=== PATIENT | male | born 1940 | race Caucasian/White ===

== ENCOUNTER 2018-01-03 11:14 | Emergency (ER) | payer OTHER ==
[2018-01-03] MEDS ORDERED: LIDOCAINE 1% MPF 5 ML VIAL ONE (13:50)
[2018-01-03] MEDS ORDERED: HYDROCODONE/APAP 7.5/325 MG TAB ONE (13:51)
[2018-01-03] MEDS ORDERED: TETANUS & DIPHTHERIA TOX,ADULT 0.5 ML VIAL ONE (13:51)
[2018-01-03] MEDS ORDERED: BUPIVACAINE 0.25% PF 10 ML VIAL ONE (13:55)
--- NOTE | 2018-01-03 14:25 | RAD REPORT ---
EXAM DESCRIPTION: RAD -Hand Left 3 View - 01/03/2018 2:11 pm CLINICAL HISTORY: Left hand pain status post injury FINDINGS: A bandage overlies the common mildly obscuring detail. No acute fracture or dislocation is seen. Old fractures involve the distal radius and ulna
--- NOTE | 2018-01-03 16:44 | ER ---
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 Transition of care: patient was not received from another setting of care. Onset of symptoms was January 03, 2018. Risk Assessment: Do you want to hurt yourself or someone else? Patient reports no desire to harm self or others. Initial Sepsis Screen: Does the patient meet any 2 criteria? No. Patient's initial sepsis screen is negative. Does the patient have a suspected source of infection? No. Patient's initial sepsis screen is negative. Care prior to arrival: None. 11:33 Method Of Arrival: Ambulatory 11:33 Acuity: YEISON 3 aj Triage Assessment: 11:35 General: Appears in no apparent distress. comfortable, Behavior is calm, cooperative, aj appropriate for age. Pain: Complains of pain in palmar aspect of distal phalanx of left thumb. Neuro: Level of Consciousness is awake, alert, obeys commands, Oriented to person, place, time, situation, Appropriate for age. Respiratory: Airway is patent Respiratory effort is even, unlabored, Respiratory pattern is regular, symmetrical. Derm: Skin is intact, is healthy with good turgor, Skin is pink, warm \T\ dry. normal. Injury Description: Laceration sustained to palmar aspect of distal phalanx of left thumb is jagged, 0.5 to 2.5 cm long, not bleeding, was sustained 30-60 minutes ago. a small amount of bleeding noted at this time. Historical: - Allergies: 11:35 No Known Allergies; aj - Home Meds: 11:35 Metformin Oral [Active]; Lisinopril Oral [Active]; gabapentin oral oral [Active]; aj - PMHx: 11:35 Diabetes - NIDDM; Hypertension; aj - PSHx: 11:35 Knee surgery; Bowel resection; aj - Immunization history:: Last tetanus immunization: unknown. - Social history:: Smoking status: Patient/guardian denies using tobacco. - Ebola Screening: : Patient negative for fever greater than or equal to 101.5 degrees Fahrenheit, and additional compatible Ebola Virus Disease symptoms Patient denies exposure to infectious person Patient denies travel to an Ebola-affected area in the 21 days before illness onset No symptoms or risks identified at this time. Screenin:20 Abuse screen: Denies threats or abuse. Nutritional screening: No deficits noted. tl3 Tuberculosis screening: No symptoms or risk factors identified. Fall Risk None identified. Assessment: 13:20 General: Appears slender, well groomed, well developed, well nourished, Behavior is tl3 calm, cooperative, appropriate for age. Pain: Complains of pain in left hand and palmar aspect of distal phalanx of left thumb Pain began 3 hours ago. Neuro: Level of Consciousness is awake, alert, obeys commands, Oriented to person, place, time, situation, Appropriate for age. Cardiovascular: Patient's skin is warm and dry. Respiratory: Airway is patent Respiratory effort is even, unlabored. GI: No signs and/or symptoms were reported involving the gastrointestinal system. : No signs and/or symptoms were reported regarding the genitourinary system. EENT: No signs and/or symptoms were reported regarding the EENT system. Derm: Wound noted left hand and palmar aspect of distal phalanx of left thumb. Derm: Reports ;laceration to left thumb pt cut with table saw. Musculoskeletal: Capillary refill < 3 seconds. 15:35 Reassessment: Patient appears in no apparent distress at this time. No changes from tl3 previously documented assessment. Patient and/or family updated on plan of care and expected duration. Pain level reassessed. Patient is alert, oriented x 3, equal unlabored respirations, skin warm/dry/pink. discussed lab results with pt, no further needs at this time. Vital Signs: 11:35 BP 154 / 76; Pulse 75; Resp 17; Temp 98.6; Pulse Ox 93% on R/A; Weight 79.38 kg; Height aj 5 ft. 5 in. (165.10 cm) (R); 15:35 BP 126 / 87; Pulse 74; Resp 18; Pulse Ox 96% ; tl3 11:35 Body Mass Index 29.12 (79.38 kg, 165.10 cm) aj ED Course: 11:21 Patient arrived in ED. mr 11:21 Benjamin Cervantes MD is Private Physician. mr 11:34 Triage completed. aj 11:35 Arm band placed on right wrist. Patient placed in waiting room, Patient notified of aj wait time. 13:07 Yessi Orr FNP-C is PHCP. kb 13:07 Eliazar Kohler MD is Attending Physician. kb 13:18 Kathleen Rivera, WILNER is Primary Nurse. tl3 13:20 Patient has correct armband on for positive identification. tl3 13:20 No provider procedures requiring assistance completed. tl3 13:50 X-ray(s) taken. tl3 13:59 Hand Left 3 View XRAY Sent. tl3 14:02 X-ray completed. Portable x-ray completed in exam room. Patient tolerated procedure ag1 well. 14:04 Hand Left 3 View XRAY In Process Unspecified. EDMS 15:30 Wound care: to laceration located on dorsal aspect of distal phalanx of left thumb, jp3 palmar aspect of distal phalanx of left thumb and left thumbnail was cleaned with Hibiclens, soaked in Betadine solution, debrided using Betadine scrub, irrigated with normal saline, Patient tolerated well. patient given gauze to hold on wound with arm raised to help control the bleeding. 17:52 Patient did not have IV access during this emergency room visit. tl3 Administered Medications: 13:59 Drug: Tetanus-Diphtheria Toxoid Adult 0.5 ml {Global Technical Writer: [employer] Exp: tl3 02/08/2020. Lot #: [id number]. } Route: IM; Site: left deltoid; 14:00 Follow up: Response: No adverse reaction tl3 14:00 Drug: Lucas (7.5 mg-325 mg) 1 tabs Route: PO; tl3 15:37 Follow up: Response: No adverse reaction tl3 15:38 Drug: Lidocaine (1 %) 1 vials {Note: per Yessi.} Volume: 5 ml; Route: Infiltration; tl3 15:38 Follow up: Response: Marked relief of symptoms tl3 15:38 Drug: Marcaine (0.5 %) 1 vials {Note: per Yessi.} Volume: 10 ml; Route: Infiltration; tl3 15:38 Follow up: Response: Marked relief of symptoms tl3 17:00 Drug: Ancef 1 grams Route: IM; Site: left gluteus; tl3 17:01 Follow up: Response: Medication administered at discharge. tl3 17:51 Follow up: Response: No adverse reaction tl3 Outcome: 16:43 Discharge ordered by . mirna 17:31 Patient left the ED. tl3 17:52 Discharged to home ambulatory. tl3 17:52 Condition: good 17:52 Discharge instructions given to patient, Instructed on discharge instructions, follow up and referral plans. medication usage, wound care, Demonstrated understanding of instructions, follow-up care, medications, wound care, Prescriptions given X 2. Signatures: Dispatcher [employer] EDYessi Holbrook, LINE O SCRIBE OPERATOR-C LINE O SCRIBE OPERATOR-Marysol Elizabeth, RN Jessi Conklin Ashley ag1 Kathleen Rivera RN RN tl3 Juarez Abbott jp3
--- NOTE | 2018-01-03 16:44 | EDPHYS ---
Physician Documentation [facility] Name: Erick Champion Age: 77 yrs Sex: Male : 1940 Arrival Date: 01/03/2018 Time: 11:21 Bed 25 Private MD: Benjamin Cervantes B ED Physician Eliazar Kohler HPI: 01/03 13:52 This 77 yrs old Male presents to ER via Ambulatory with complaints of Thumb kb Laceration. 13:52 The patient or guardian reports injury, a laceration, irregular, ragged, pain. The kb complaints affect the palmar aspect of distal phalanx of left thumb. Context: The problem was sustained at home, resulted from working with table saw and cut thumb. Onset: The symptoms/episode began/occurred just prior to arrival. Modifying factors: The symptoms are alleviated by nothing, the symptoms are aggravated by touching. Associated signs and symptoms: The patient has no apparent associated signs or symptoms. Severity of symptoms: At their worst the symptoms were moderate, in the emergency department the symptoms are unchanged. The patient has not experienced similar symptoms in the past. The patient has not recently seen a physician. Historical: - Allergies: 11:35 No Known Allergies; aj - Home Meds: 11:35 Metformin Oral [Active]; Lisinopril Oral [Active]; gabapentin oral oral [Active]; aj - PMHx: 11:35 Diabetes - NIDDM; Hypertension; - PSHx: 11:35 Knee surgery; Bowel resection; aj - Immunization history:: Last tetanus immunization: unknown. - Social history:: Smoking status: Patient/guardian denies using tobacco. - Ebola Screening: : Patient negative for fever greater than or equal to 101.5 degrees Fahrenheit, and additional compatible Ebola Virus Disease symptoms Patient denies exposure to infectious person Patient denies travel to an Ebola-affected area in the 21 days before illness onset No symptoms or risks identified at this time. ROS: 13:52 Constitutional: Negative for fever, chills, and weight loss, Cardiovascular: Negative kb for chest pain, palpitations, and edema, Respiratory: Negative for shortness of breath, cough, wheezing, and pleuritic chest pain, Abdomen/GI: Negative for abdominal pain, nausea, vomiting, diarrhea, and constipation, Neuro: Negative for headache, weakness, numbness, tingling, and seizure. 13:52 MS/extremity: Positive for injury or acute deformity, laceration, pain, of the palmar aspect of distal phalanx of left thumb. Exam: 13:49 Constitutional: This is a well developed, well nourished patient who is awake, alert, kb and in no acute distress. Head/Face: Normocephalic, atraumatic. Chest/axilla: Normal chest wall appearance and motion. Nontender with no deformity. No lesions are appreciated. Cardiovascular: Regular rate and rhythm with a normal S1 and S2. No gallops, murmurs, or rubs. Normal PMI, no JVD. No pulse deficits. Respiratory: Lungs have equal breath sounds bilaterally, clear to auscultation and percussion. No rales, rhonchi or wheezes noted. No increased work of breathing, no retractions or nasal flaring. Abdomen/GI: Soft, non-tender, with normal bowel sounds. No distension or tympany. No guarding or rebound. No evidence of tenderness throughout. Neuro: Awake and alert, GCS 15, oriented to person, place, time, and situation. Cranial nerves II-XII grossly intact. Motor strength 5/5 in all extremities. Sensory grossly intact. Cerebellar exam normal. Normal gait. 13:49 Musculoskeletal/extremity: Extremities: grossly normal except: noted in the palmar aspect of distal phalanx of left thumb: laceration, avulsion, ROM: intact in all extremities, Circulation is intact in all extremities. Sensation intact. Vital Signs: 11:35 BP 154 / 76; Pulse 75; Resp 17; Temp 98.6; Pulse Ox 93% on R/A; Weight 79.38 kg; Height aj 5 ft. 5 in. (165.10 cm) (R); 15:35 BP 126 / 87; Pulse 74; Resp 18; Pulse Ox 96% ; tl3 11:35 Body Mass Index 29.12 (79.38 kg, 165.10 cm) Procedures: 14:37 Nerve block: (digital) of palmar aspect of proximal phalanx of left thumb Medication: Lidocaine 1% without epinephrine Marcaine 0.5%, Amount: 7 mls were injected, Effect: the patient has resolution of the pain, Set up for procedure. Performed by Yessi BAR Patient tolerated well. Laceration: 16:40 Wound Repair of 3cm ( 1.2in ) subcutaneous laceration to palmar aspect of proximal kb phalanx of left thumb. Irregularly shaped.. Skin/tissue flap noted.. Distal neuro/vascular/tendon intact. Anesthesia: Digital block administered with 7 mls of Lido/Marcaine. Wound prep: Extensive cleansing with betadine by boiler control technician, Wound irrigation with saline by boiler control technician. Skin closed with 10 5-0 Prolene using interrupted sutures and sterile technique. Dressed with tube gauze. Patient tolerated well. MDM: 13:19 Patient medically screened. kb 13:49 Data reviewed: vital signs, nurses notes. Data interpreted: Pulse oximetry: on room air kb is 93 %. Interpretation: normal. 16:42 Counseling: I had a detailed discussion with the patient and/or guardian regarding: the kb historical points, exam findings, and any diagnostic results supporting the discharge/admit diagnosis, radiology results, the need for outpatient follow up, a family practitioner, to return to the emergency department if symptoms worsen or persist or if there are any questions or concerns that arise at home. 01/03 13:21 Order name: Hand Left 3 View XRAY; Complete Time: 14:31 kb Administered Medications: 13:59 Drug: Tetanus-Diphtheria Toxoid Adult 0.5 ml {It Technical Support Specialist: [email or web address] Exp: tl3 02/08/2020. Lot #: [id number]. } Route: IM; Site: left deltoid; 14:00 Follow up: Response: No adverse reaction tl3 14:00 Drug: [place] (7.5 mg-325 mg) 1 tabs Route: PO; tl3 15:37 Follow up: Response: No adverse reaction tl3 15:38 Drug: Lidocaine (1 %) 1 vials {Note: per Yessi.} Volume: 5 ml; Route: Infiltration; tl3 15:38 Follow up: Response: Marked relief of symptoms tl3 15:38 Drug: Marcaine (0.5 %) 1 vials {Note: per Yessi.} Volume: 10 ml; Route: Infiltration; tl3 15:38 Follow up: Response: Marked relief of symptoms tl3 17:00 Drug: Ancef 1 grams Route: IM; Site: left gluteus; tl3 17:01 Follow up: Response: Medication administered at discharge. tl3 17:51 Follow up: Response: No adverse reaction tl3 Disposition: 01/04 13:53 Co-signature as Attending Physician, Eliazar Kohler MD I agree with the assessment and kdr plan of care. Disposition: 01/03/18 16:43 Discharged to Home. Impression: Laceration without foreign body of left thumb without damage to nail. - Condition is Stable. - Discharge Instructions: Laceration Care, Adult, [id number]. - Prescriptions for Keflex 500 mg Oral Capsule - take 1 capsule by ORAL route every 8 hours for 10 days; 30 capsule. Tylenol- Codeine #3 300-30 mg Oral Tablet - take 1 tablet by ORAL route every 6 hours As needed; 20 tablet. - Medication Reconciliation Form, Thank You Letter, Antibiotic Education, Prescription Opioid Use form. - Follow up: Emergency Department; When: As needed; Reason: Worsening of condition. Follow up: Private Physician; When: 2 - 3 days; Reason: Recheck today's complaints, Continuance of care, Re-evaluation by your physician. - Notes: Keep clean and dry Watch for signs of infection, including redness, swelling, drainage and warmth Have sutures removed in 10-14 days Signatures: Dispatcher [employer] EDMS Yessi Orr, BIRTH CERTIFICATE CLERK-C BIRTH CERTIFICATE CLERK-CkMarysol Avila, RN RN Eliazar Mayorga MD MD [facility] Kathleen Rivera, WILNER RN tl3 Corrections: (The following items were deleted from the chart) 01/03 13:52 13:49 Musculoskeletal/extremity: Extremities: grossly normal except: noted in the kb palmar aspect of distal phalanx of left thumb: laceration, avulsion, ROM: intact in all extremities, Circulation is intact in all extremities. Sensation intact. kb 17:31 16:43 01/03/2018 16:43 Discharged to Home. Impression: Laceration without foreign body tl3 of left thumb without damage to nail. Condition is Stable. Forms are Medication Reconciliation Form, Thank You Letter, Antibiotic Education, Prescription Opioid Use. Follow up: Emergency Department; When: As needed; Reason: Worsening of condition. Follow up: Private Physician; When: 2 - 3 days; Reason: Recheck today's complaints, Continuance of care, Re-evaluation by your physician. kb
[2018-01-03] MEDS ORDERED: CEFAZOLIN SODIUM 1 GM/VIAL ONE (17:03)
[2018-01-03] MEDS ORDERED: WATER FOR INJ,STERILE 10 ML ONE (17:04)
== END 2018-01-03 17:31 | disposition home or self-care (01) ==
LOC: ER 11:14
PROC: 0JQK0ZZ Repair Left Hand Subcutaneous Tissue and Fascia, Open Approach (ICD-10-PCS; principal; 2018-01-03)
DX: S61.012A Laceration without foreign body of left thumb without damage to nail, initial encounter (principal); W29.8XXA Contact with other powered hand tools and household machinery, initial encounter; Y93.89 Activity, other specified; Y92.009 Unspecified place in unspecified non-institutional (private) residence as the place of occurrence of the external cause; Z23 Encounter for immunization; I10 Essential (primary) hypertension; E11.9 Type 2 diabetes mellitus without complications
CPT/HCPCS: 12002; 64450; 73130; 90714; 96372; 99284; J0690